=== PATIENT | female | born 1950 | race African-American/Black ===

== ENCOUNTER 2020-07-09 10:30 | Emergency (ER) | payer OTHER ==
[~2020-07-09] VITALS: Ht 157.5 cm; Wt 110.0 kg
[2020-07-09] MEDS ORDERED: MORPHINE SULFATE 4 MG/ML CPJ (NOT FOR IM USE) IV ONE (10:45)
[2020-07-09 11:30] LABS: BASOPHILS % 0.7 % (0.0-2.0); EOSINOPHILS % 1.2 % (0.0-5.0); HEMATOCRIT. 48.4 % (36.0-48.0); HEMOGLOBIN. 16.1 g/dL (12.0-16.0); LYMPHOCYTES % 19.4 % (20.0-50.0); MEAN CORPUSCULAR HEMOGLOBIN 29.9 pg (28.0-32.0); MEAN PLATELET VOLUME 9.4 fl (7.4-10.4); MONOCYTES % 8.1 % (2.0-8.0); NEUTROPHILS % 70.6 % (40.0-76.0); PLATELET 187 x1000/uL (130-400); RED BLOOD CELL COUNT 5.38 mill/uL (4.2-5.4); RED CELL DISTRIBUTION WIDTH 15.7 % (11.6-14.6)
[2020-07-09 11:52] LABS: B-HCG QUANTITATIVE < 1 mIU/mL (<3)
[2020-07-09 12:00] LABS: CHLORIDE 105 mEq/L (98-107)
[2020-07-09 12:30] VITALS: BP 138/92
== END 2020-07-09 12:30 | disposition home or self-care (01) ==
LOC: ER 10:30
DX: N95.0 Postmenopausal bleeding (principal)
CPT/HCPCS: 36415; 80053; 84702; 85025; 86850; 86900; 99283